=== PATIENT | female | born 1985 | race Caucasian/White ===

== ENCOUNTER 2016-09-17 12:38 | Emergency (ER) | payer BC ==
[~2016-09-17] VITALS: Ht 162.6 cm; Wt 61.2 kg
[2016-09-17 13:15] VITALS: BP 126/93
[2016-09-17] MEDS ORDERED: PENI500T PO (13:24)
[2016-09-17] MEDS ORDERED: TRAM-29 PO (13:24)
--- NOTE | 2016-09-17 13:24 | PHYS DOC ---
Past Medical History Past Medical History: No Pertinent History Smokin Pack Per Day Alcohol Use: Occasionally Drug Use: Marijuana Adult General Chief Complaint Chief Complaint: DENTAL PROBLEM HPI HPI Patient is a 31 year old female who presents with left maxillary wisdom tooth pain after the tooth broke 3 days ago. She reports swelling around the tooth but denies fevers. She has been unable to see her dentist yet. She does not have a PCP. Review of Systems Review of Systems Constitutional: Denies fever or chills. [] Eyes: Denies change in visual acuity, redness, or eye pain. [] HENT: Denies ear pain, nasal congestion or sore throat. Reports dental pain. Integument: Denies rash or skin lesions. [] Neurologic: Denies headache, focal weakness or sensory changes. [] Physical Exam Physical Exam Constitutional: Well developed, well nourished, no acute distress, non-toxic appearance. [] HENT: Normocephalic, atraumatic, bilateral external ears normal, oropharynx moist, no oral exudates, nose normal. Bilateral TMs without erythema or bulging. There is no posterior pharyngeal erythema or tonsillar edema. Tooth # 16 is broken with mild surrounding gingival edema. There is no dental abscess. Eyes: PERRLA, EOMI, conjunctiva normal, no discharge. [] Neck: Normal range of motion, no tenderness, supple, no stridor. [] Skin: Warm, dry, no erythema, no rash. [] Neurologic: Alert and oriented X 3, normal motor function, normal sensory function, no focal deficits noted. [] Psychologic: Affect normal, judgement normal, mood normal. [] EKG EKG [] Radiology/Procedures Radiology/Procedures [] Course & Med Decision Making Course & Med Decision Making Pertinent Labs and Imaging studies reviewed. (See chart for details) [] Dragon Disclaimer Dragon Disclaimer This electronic medical record was generated, in whole or in part, using a voice recognition dictation system. Departure Departure Impression: Primary Impression: Dentalgia Disposition: 01 HOME, SELF-CARE Condition: STABLE Referrals: NO PCP (PCP) Patient Instructions: Dental Pain, [id number] Additional Instructions: You were seen today for dental pain. Please complete all the prescribed antibiotics, even if your tooth is feeling better. Please take the prescribed pain medication as directed. Do not drive or operate heavy machinery while taking pain medication. Please follow-up with your dentist as soon as possible. Return to emergency department if you have any new or concerning symptoms. Scripts Tramadol Hcl (Ultram)50 Mg Beggvn23 Mg PO Q6H PRN PAIN #20 TAB Prov:ALYSE CAMPBELL 09/17/16 Penicillin V Potassium 500 Mg Tablet1 Tab PO TID #30 TAB Prov:ALYSE CAMPBELL 09/17/16 ALYSE CAMPBELL Sep 17, 2016 13:24
== END 2016-09-17 13:30 | disposition home or self-care (01) ==
LOC: ER 12:38
DX: K08.89 Other specified disorders of teeth and supporting structures (principal); F17.210 Nicotine dependence, cigarettes, uncomplicated; F12.10 Cannabis abuse, uncomplicated
CPT/HCPCS: 99283